=== PATIENT | female | born 1960 | race Two or more races ===

== ENCOUNTER 2018-04-26 16:33 | Emergency (ER) | payer MEDICAID ==
[~2018-04-26] VITALS: Ht 165.1 cm; Wt 75.3 kg
--- NOTE | 2018-04-26 16:42 | NUR ---
BIB DAUGHTER FOR HIGH BP X 3DAYS, REPORTS H/A AND NAUSEA; PT AAOX4, RESP EVEN AND UNLABORED, NO SOB, NAD NOTED, ER PROVIDER AT BEDSID FOR EVAL
[2018-04-26] MEDS ORDERED: CLONIDINE HCL 0.1 MG TABLET ONE (17:19)
[2018-04-26] MEDS ORDERED: ACETAMINOPHEN ES 500 MG TABLET ONE (17:19)
[2018-04-26] MEDS ORDERED: CLONIDINE HCL 0.1 MG TABLET PO ONE (17:30)
[2018-04-26] MEDS ORDERED: ACETAMINOPHEN ES 500 MG TABLET PO ONE (17:30)
[2018-04-26 17:32] LABS: BASOPHILS # (AUTO) 0.1 /CMM (0.0-0.2); BASOPHILS % (AUTO) 0.7 % (0.0-2.0); EOSINOPHILS % (AUTO) 3.1 % (0.0-6.0); HEMATOCRIT 41 % (33-45); HEMOGLOBIN 13.6 g/dL (11.5-14.8); LYMPHOCYTES # (AUTO) 3.2 /CMM (0.8-4.8); LYMPHOCYTES % (AUTO) 34.9 % (20.0-44.0); MEAN CORPUSCULAR HGB CONC 34 g/dl (31.0-36.0); MEAN CORPUSCULAR VOLUME 86 fL (82-100); MONOCYTES # (AUTO) 0.6 /CMM (0.1-1.30); MONOCYTES % (AUTO) 6.2 % (2.0-12.0); NEUTROPHILS # (AUTO) 5.1 /CMM (1.8-8.9); NEUTROPHILS % (AUTO) 55.1 % (43.0-81.0); PLATELET COUNT (AUTO) 335 /CMM (150-450); RED BLOOD CELL COUNT(AUTO) 4.69 MIL/uL (4.0-5.2); WHITE BLOOD COUNT (AUTO) 9.3 K/uL (4.3-11.0)
[2018-04-26 17:41] LABS: CALCIUM, SERUM 9.6 mg/dL (8.5-10.1); CARBON DIOXIDE 30 mmol/L (21-32); CHLORIDE 105 mmol/L (98-107); CREATININE 0.8 mg/dL (0.6-1.3); GLUCOSE 136 mg/dL (74-106); SODIUM SERUM 139 mmol/L (136-145); UREA NITROGEN, BLOOD 13 mg/dL (7-18)
[2018-04-26 17:47] LABS: ALANINE AMINOTRANSFERASE 28 U/L (12-78); ALBUMIN 3.9 g/dL (3.4-5.0); ALKALINE PHOSPHATASE 74 U/L (46-116); ASPARTATE AMINOTRANSFERASE 14 U/L (15-37); BILIRUBIN,DIRECT 0.1 mg/dL (0.0-0.2); BILIRUBIN,TOTAL 0.3 mg/dL (0.2-1.0); TOTAL PROTEIN, SERUM 7.7 g/dL (6.4-8.2)
[2018-04-26] MEDS ORDERED: ASPIRIN 81 MG TAB.CHEW PO ONE (18:00)
[2018-04-26] MEDS ORDERED: NITROGLYCERIN 0.4 MG/TAB BOTTLE SL ONE (18:00)
[2018-04-26] MEDS ORDERED: ASPIRIN 325 MG TABLET ONE (18:16)
[2018-04-26] MEDS ORDERED: IV NS 0.9% 1,000 ML BAG IV ONE ×2 (19:00→21:00)
--- NOTE | 2018-04-26 19:17 | NUR ---
NITESH PEREZ AT BEDSIDE.
[2018-04-26] MEDS ORDERED: IOHEXOL-300 100 ML VIAL IV ONE (19:27)
[2018-04-26] MEDS ORDERED: IV NS 0.9% 250 ML IV ONE (19:27)
[2018-04-26] MEDS ORDERED: CT SWABBABLE VALVE TRANS SET 1 EA INFUS.SET MC ONE (19:27)
--- NOTE | 2018-04-26 19:31 | NUR ---
PT TRANSPORTED TO RADIOLOGY FOR CT ABD/PELVIS WITH IV CONTRAST.
--- NOTE | 2018-04-26 19:44 | NUR ---
PT BACK FROM RADIOLOGY. PENDING CT ABD/PELVIS RESULT. PT FAMILY MEMBERS AT BEDSIDE.
--- NOTE | 2018-04-26 19:52 | NUR ---
URINE SAMPLE COLLECTED AND SENT TO LAB.
--- NOTE | 2018-04-26 20:48 | NUR ---
[facility] TO CALL [facility] , WAITING FOR CALL BACK.
--- NOTE | 2018-04-26 21:16 | NUR ---
CALLED [facility], SPOKE TO TIFFANY SHIN PENDING BED, WAITING FOR CALL BACK.
--- NOTE | 2018-04-26 21:49 | NUR ---
BED [id number] CALL FOR REPORT: [phone] ANY ISSUES CALL [phone] [facility] [employer]
[2018-04-26 21:51] LABS: APPEARANCE,URINE Clear (CLEAR); BILIRUBIN,URINE Negative (NEGATIVE); BLOOD, URINE Negative Ery/uL (NEGATIVE); COLOR,URINE Yellow (YELLOW); KETONES,URINE Negative (NEGATIVE); LEUKOCYTE ESTERASE ,URINE Negative (NEGATIVE); NITRITE, URINE Negative (NEGATIVE); PROTEIN,URINE Negative (NEGATIVE); UGLUCOSE Negative (NEGATIVE); UROBILINOGEN,URINE 0.2 EU/dL (0.2)
--- NOTE | 2018-04-26 22:18 | NUR ---
[employer] E[employer] [id number] TRIP [id number]
--- NOTE | 2018-04-26 22:47 | NUR ---
REPORT CALLED TO [facility] MILA SIMMONS. AWAITING TRANSPORT.
[2018-04-26 22:52] VITALS: BP 164/85
--- NOTE | 2018-04-26 22:52 | NUR ---
TRANSPORT AT BEDSIDE REPORT GIVEN TO EMT.
== END 2018-04-26 23:11 | disposition short-term general hospital (02) ==
LOC: ER 16:35
DX: K85.90 Acute pancreatitis without necrosis or infection, unspecified (principal); I10 Essential (primary) hypertension; E11.9 Type 2 diabetes mellitus without complications
CPT/HCPCS: 36415; 71045; 74177; 76705; 80048; 80076; 81001; 83690; 84484 ×2; 85025; 93005 ×2; 99285; A4606; J7030 ×2; J7050; Q9967; 81000-TC

== ENCOUNTER 2022-04-06 14:58 | Outpatient (CLI) | payer MEDICARE, OTHER ==
[2022-04-06 15:52] LABS: CREATININE 0.8 mg/dL (0.6-1.3)
[2022-04-06] MEDS ORDERED: IV NS 0.9% 250 ML IV ONE (16:11)
[2022-04-06] MEDS ORDERED: CT SWABBABLE VALVE TRANS SET 1 EA INFUS.SET MC ONE (16:11)
[2022-04-06] MEDS ORDERED: IOHEXOL-350 100 ML VIAL IV ONE (16:11)
== END 2022-04-06 23:59 | disposition home or self-care (01) ==
LOC: CT 14:58
PROVIDERS: ATTEND Internal Medicine Interventional Cardiology
DX: J98.11 Atelectasis (principal); R91.1 Solitary pulmonary nodule; I26.99 Other pulmonary embolism without acute cor pulmonale; M47.814 Spondylosis without myelopathy or radiculopathy, thoracic region; R06.02 Shortness of breath
CPT/HCPCS: 71275; 84520; 82565; 36415; J7050; Q9967